=== PATIENT | male | born 1945 | race Caucasian/White ===

== ENCOUNTER 2019-08-01 09:47 | Emergency (ER) | payer MEDICARE, BC ==
[2019-08-01] MEDS ORDERED: Sodium Chloride 0.9% 10 ML Syringe FLUSH PRN (10:09)
[2019-08-01] MEDS ORDERED: Ondansetron 4 MG/2 ML SDV IVPUSH ONE (10:10)
[2019-08-01] MEDS ORDERED: Ketorolac 15 MG/ML SDV IVPUSH ONE (10:10)
[2019-08-01] MEDS ORDERED: Sodium Chloride 0.9% 1,000 ML IV SCH (10:15)
[2019-08-01 11:06] LABS: ANION GAP 11.6 mmol/L (10-20); CHLORIDE,CL 104 mmol/L (54-184); SODIUM,NA 141 mmol/L (69-191)
--- NOTE | 2019-08-01 11:12 | CT ---
[id number] CT/CT Abdomen Pelvis WO IV EXAM: CT Abdomen Pelvis WO IV CLINICAL DATA: LEFT FLANK PAIN. COMPARISON STUDY: None. FINDINGS: Mild left-sided hydroureteronephrosis to the level of the urinary bladder with periureteral and perinephric reactive change. No obstructing stone identified on this examination. Findings are nonspecific and possibly sequela of a recently passed stone. There are punctate 1-2 mm nonobstructing bilateral renal calculi. Right ureter is normal in caliber. Prostate gland is radiographically unremarkable appearance. No evidence of colitis or diverticulitis. No small bowel obstruction or inflammation. Liver, gallbladder, spleen, pancreas, and adrenal glands are unremarkable. No lymphadenopathy in the abdomen or pelvis. IMPRESSION: Mild left-sided hydroureteronephrosis to the level of the urinary bladder without obstructing stone. Findings are nonspecific and possibly sequela of a recently passed stone. If symptoms persist, consider CT urogram protocol to evaluate for any other underlying pathology. Bilateral nonobstructing renal calculi right greater than left. Other findings are described above. Seth Shin MD 08/01/19 1111 Thank you for allowing us to participate in the care of your patient.
--- NOTE | 2019-08-01 11:24 | EDM.PDOC ---
ED HPI GENERAL MEDICAL PROBLEM - General Chief Complaint: Flank Pain Stated Complaint: flank pain Time Seen by Provider: 08/01/19 10:15 Source of Information: Reports: Patient History Limitations: Reports: No Limitations - History of Present Illness INITIAL COMMENTS - FREE TEXT/NARRATIVE: Patient comes into the emergency department with complaint of left flank pain. Patient states that it started suddenly 2 days ago and has progressively gotten worse. Patient states the worst pain has been this morning. It's been constant. He does have a history of kidney stones however was on the right side. He did have to have a lithotripsy due to the obstruction in the past. Patient states that he has been nauseated and has difficulty getting comfortable due to the pain. He states that it is worse when he is sitting down. It does feel better when he is up pacing the floor. He denies taking any medications for any relief prior to arrival. Patient denies any other complaints or concerns. Location: Reports: Back Quality: Reports: Burning, Sharp Severity: Severe Improves with: Reports: Movement Worsens with: Reports: Rest Associated Symptoms: Reports: Nausea/Vomiting - Related Data Allergies Allergy/AdvReac Type Severity Reaction Status Date / Time codeine AdvReac Severe Headache Verified 10/17/16 13:08 Home Meds: Home Meds Ketorolac [Toradol] 10 mg PO Q6H PRN #15 tab 08/01/19 [Rx] Tamsulosin HCl [Flomax] 0.4 mg PO DAILY #14 cap.er.24h 08/01/19 [Rx] ED ROS GENERAL - Review of Systems Review Of Systems: ROS reveals no pertinent complaints other than HPI. Constitutional: Reports: No Symptoms HEENT: Reports: No Symptoms Respiratory: Reports: No Symptoms Cardiovascular: Reports: No Symptoms Endocrine: Reports: No Symptoms : Reports: Flank Pain. Denies: Dysuria, Frequency, Hematuria, Incontinence, Irregular Menses, Pain, Urgency Musculoskeletal: Reports: No Symptoms Skin: Reports: No Symptoms Neurological: Reports: No Symptoms ED EXAM, GENERAL - Physical Exam Exam: See Below Exam Limited By: No Limitations General Appearance: Alert, WD/WN, No Apparent Distress Head: Atraumatic, Normocephalic Neck: Normal Inspection, Supple, Non-Tender, Full Range of Motion Respiratory/Chest: No Respiratory Distress, Lungs Clear, Normal Breath Sounds, No Accessory Muscle Use, Chest Non-Tender Cardiovascular: Normal Peripheral Pulses, Regular Rate, Rhythm, No Edema GI/Abdominal: Normal Bowel Sounds, Soft, Non-Tender, No Distention, No Abnormal Bruit (Male) Exam: No Hernia Back Exam: Normal Inspection, Full Range of Motion Extremities: Normal Inspection, Normal Range of Motion, Non-Tender, No Pedal Edema, Normal Capillary Refill Neurological: Alert, Oriented Psychiatric: Normal Affect, Normal Mood Skin Exam: Warm, Dry, Intact, Normal Color, No Rash Course - Orders/Labs/Meds Orders: Active Orders 24 hr Category Date Time Status Sodium Chloride 0.9% [Normal Saline] 1,000 ml Med 08/01/19 10:15 Active IV ASDIRECTED Sodium Chloride 0.9% [Saline Flush] Med 08/01/19 10:09 Active 10 ml FLUSH ASDIRECTED PRN Tamsulosin [Flomax] Med 08/01/19 11:30 Active 0.4 mg PO DAILY Peripheral IV Insertion Adult [OM.PC] Stat Oth 08/01/19 10:09 Ordered Medication Orders Sodium Chloride (Normal Saline) 1,000 mls @ 1,000 mls/hr IV ASDIRECTED [facility] Last Admin: 08/01/19 10:33 Dose: 1,000 mls/hr Sodium Chloride (Saline Flush) 10 ml FLUSH ASDIRECTED PRN PRN Reason: Keep Vein Open Tamsulosin HCl (Flomax) 0.4 mg PO DAILY [facility] Last Admin: 08/01/19 11:27 Dose: 0.4 mg Labs: Laboratory Tests 08/01/19 08/01/19 08/01/19 Range/Units 10:35 10:35 10:40 WBC 9.7 (4.0-10.0) x10^3/uL RBC 4.74 (4.5-6.0) x10^6/uL Hgb 15.0 (14.0-18.0) g/dL Hct 44.7 (40.0-52.0) % MCV 94.3 H (78.0-93.0) fL MCH 31.6 (26.0-32.0) pg MCHC 33.6 (32.0-36.0) g/dL RDW Coeff of Kyle 12.9 (10.0-15.0) % Plt Count 200 (130-400) x10^3/uL Neut % (Auto) 89.4 H (50.0-80.0) % Lymph % (Auto) 6.2 L (25.0-50.0) % [place] % (Auto) 3.9 (2.0-11.0) % Eos % (Auto) 0.3 (0.0-4.0) % Baso % (Auto) 0.2 (0.2-1.2) % Sodium 141 (69-191) mmol/L Potassium 4.6 (1.5-9.9) mmol/L Chloride 104 (54-184) mmol/L Carbon Dioxide 30 (21-32) mmol/L Anion Gap 11.6 (10-20) mmol/L BUN 18 (7-18) mg/dL Creatinine 1.4 H (0.70-1.30) mg/dL Est Cr Clr Drug Dosing TNP Estimated GFR (MDRD) 50 Glucose 179 H (74-106) mg/dL Calcium 9.1 (8.5-10.1) mg/dL Corrected Calcium 9.42 (8.5-10.1) mg/dL Total Bilirubin 0.5 (0.2-1.0) mg/dL AST 30 (15-37) U/L ALT 27 (16-63) U/L Alkaline Phosphatase 65 (46-116) U/L Total Protein 7.6 (6.4-8.2) g/dL Albumin 3.6 (3.4-5.0) g/dL Globulin 4.0 Albumin/Globulin Ratio 0.90 Urine Color Yellow (YELLOW) Urine Appearance Slightly cloudy H (CLEAR) Urine pH 6.0 (5.0-8.0) Ur Specific [place] 1.020 Urine Protein Negative (NEGATIVE) mg/dL Urine Glucose (UA) Negative (NEGATIVE) mg/dL Urine Ketones Negative (NEGATIVE) mg/dL Urine Occult Blood Moderate H (NEGATIVE) Urine Nitrite Negative (NEGATIVE) Urine Bilirubin Negative (NEGATIVE) Urine Urobilinogen 0.2 (0.2) EU/dL Ur Leukocyte Esterase Negative (NEGATIVE) Urine RBC 10-20 H (NOT SEEN) /HPF Urine WBC 0-5 (NOT SEEN) /HPF Ur Squamous Epith Cells Rare (NEGATIVE) /HPF Urine Bacteria Rare (NEGATIVE) /HPF Urine Mucus Rare H (NEGATIVE) /LPF Meds: Medications Generic Name Dose Route Start Last Admin Trade Name Freq PRN Reason Stop Dose Admin Sodium Chloride 1,000 mls @ 1,000 mls/hr 08/01/19 10:15 08/01/19 10:33 Normal Saline IV 1,000 mls/hr ASDIRECTED RAMON Administration Sodium Chloride 10 ml 08/01/19 10:09 Saline Flush FLUSH ASDIRECTED PRN Keep Vein Open Tamsulosin HCl 0.4 mg 08/01/19 11:30 08/01/19 11:27 Flomax PO 0.4 mg DAILY RAMON Administration Discontinued Medications Generic Name Dose Route Start Last Admin Trade Name Freq PRN Reason Stop Dose Admin Ketorolac Tromethamine 15 mg 08/01/19 10:10 08/01/19 10:31 Toradol IVPUSH 08/01/19 10:11 15 mg ONETIME ONE Administration Ondansetron HCl 4 mg 08/01/19 10:10 08/01/19 10:33 Zofran IVPUSH 08/01/19 10:11 4 mg ONETIME ONE Administration Departure - Departure Time of Disposition: 12:00 Disposition: Home, Self-Care 01 Condition: Good Clinical Impression: Kidney stone - Discharge Information *PRESCRIPTION DRUG MONITORING PROGRAM REVIEWED*: Not Applicable *COPY OF PRESCRIPTION DRUG MONITORING REPORT IN PATIENT DOREEN: Not Applicable Prescriptions: Ketorolac [Toradol] 10 mg PO Q6H PRN #15 tab PRN Reason: Pain (Moderate 4-6) Tamsulosin HCl [Flomax] 0.4 mg PO DAILY #14 cap.er.24h Instructions: Low-Purine Eating Plan, Kidney Stones, [id number], Flank Pain, Adult, [id number] Referrals: Katiana Burkett, [Primary Care Provider] - Forms: ED Department Discharge Additional Instructions: 1. Increase your water intake 2. Take Toradol as needed for pain and discomfort 3. Take Flomax daily for the next 14 days 4. A strainer sent home please try to collect the stone if at all possible bring back in for analysis 5. Follow up as needed in the clinic 6. Activity and diet as tolerated 8. Call with any questions or concerns - My Orders Last 24 Hours: My Active Orders 08/01/19 10:09 Sodium Chloride 0.9% [Saline Flush] 10 ml FLUSH ASDIRECTED PRN Peripheral IV Insertion Adult [OM.PC] Stat 08/01/19 10:15 Sodium Chloride 0.9% [Normal Saline] 1,000 ml IV ASDIRECTED 08/01/19 11:30 Tamsulosin [Flomax] 0.4 mg PO DAILY - Assessment/Plan Last 24 Hours: My Active Orders 08/01/19 10:09 Sodium Chloride 0.9% [Saline Flush] 10 ml FLUSH ASDIRECTED PRN Peripheral IV Insertion Adult [OM.PC] Stat 08/01/19 10:15 Sodium Chloride 0.9% [Normal Saline] 1,000 ml IV ASDIRECTED 08/01/19 11:30 Tamsulosin [Flomax] 0.4 mg PO DAILY Assessment:: 1. Left flank pain 2. Left kidney stone Plan: 1. IV initiated and fluids given in the ER 2. Labs completed in the ER. Results reviewed with patient 3. CT scan of abdomen and pelvis completed in the ER. Results reviewed with patient 4. Toradol IV and Zofran given in the ER for pain and nausea. 5. Flomax given in the ER 6. Toradol and Flomax prescription sent home with the patient 7. Education provided the patient regarding straining, medication use, over-the- counter medication use, diet, activity, follow-up, and when to seek medical attention if symptoms worsen or progress 8. All questions and concerns addressed prior to discharge
[2019-08-01] MEDS ORDERED: Tamsulosin 0.4 MG Cap.ER PO SCH (11:30)
[2019-08-01 18:10] VITALS: BP 121/66; PULSE 47
== END 2019-08-01 11:55 | disposition home or self-care (01) ==
LOC: VM.ED 09:47
DX: N13.2 Hydronephrosis with renal and ureteral calculous obstruction (principal); Z87.442 Personal history of urinary calculi; Z88.5 Allergy status to narcotic agent
CPT/HCPCS: 36415; 74176; 80053; 81001; 85025; 96361; 96374; 96375; 99284; A9270; J1885; J2405; J7030

== ENCOUNTER 2023-05-21 12:05 | Emergency (ER) | payer MEDICARE, BC ==
[2023-05-21] MEDS ORDERED: Sodium Chloride 0.9% 10 ML Syringe FLUSH PRN (12:16)
[2023-05-21] MEDS ORDERED: fentaNYL 50 MCG/ML SDV IVPUSH ONE (12:21)
[2023-05-21 12:23] LABS: BASOPHILS PERCENT AUTO 0.2 % (0.2-1.2); EOSINOPHILS ABSOLUTE AUTO 0.2 x10^3/uL (0.0-0.5); EOSINOPHILS PERCENT AUTO 2.7 % (0.0-4.0); HEMATOCRIT 43.5 % (40.0-52.0); HEMOGLOBIN 15.2 g/dL (14.0-18.0); IMMATURE GRAN ABSOLUTE AUTO 0.07 x10^3/uL (0.00-0.07); LYMPHOCYTES ABSOLUTE AUTO 2.2 x10^3/uL (1.0-4.8); LYMPHOCYTES PERCENT AUTO 26.8 % (25.0-50.0); MEAN CORPUSCULAR HEMOGLOBIN 32.4 pg (26.0-32.0); MEAN CORPUSCULAR HGB CONC 34.9 g/dL (32.0-36.0); MEAN CORPUSCULAR VOLUME 92.8 fL (78.0-93.0); MONOCYTES ABSOLUTE AUTO 0.6 x10^3/uL (0.0-0.8); MONOCYTES PERCENT AUTO 7.3 % (2.0-11.0); NEUTROPHILS PERCENT AUTO 62.1 % (50.0-80.0); PLATELET COUNT,PLT 198 x10^3/uL (130-400); RED BLOOD CELL COUNT 4.69 x10^6/uL (4.5-6.0); WHITE BLOOD CELL COUNT,WBC 8.1 x10^3/uL (4.0-10.0)
[2023-05-21 12:36] LABS: INR 0.9 (2.0-3.5); PROTHROMBIN TIME 9.5 SEC (9.5-12.2); PTT,PARTIAL THROMBOPLSTIN TIME 21.1 SEC (23.6-33.6)
[2023-05-21] MEDS ORDERED: Iopamidol 612 MG/ML 100 ML Bottle IVPUSH ONE (12:37)
[2023-05-21 12:38] LABS: A/G RATIO 0.78; ALANINE AMINOTRANSFERASE,ALT 89 U/L (16-63); ALBUMIN 3.6 g/dL (3.4-5.0); ALKALINE PHOSPHATASE 60 U/L (46-116); ASPARTATE AMNIOTRANSFERASE,AST 112 U/L (15-37); BILIRUBIN TOTAL 0.7 mg/dL (0.2-1.0); BLOOD UREA NITROGEN,BUN 19 mg/dL (7-18); CALCIUM 9.5 mg/dL (8.5-10.1); CARBON DIOXIDE,CO2 31 mmol/L (21-32); CHLORIDE,CL 102 mmol/L (98-107); CREATININE 1.3 mg/dL (0.70-1.30); GLUCOSE RANDOM 156 mg/dL (70-99); POTASSIUM,K 3.7 mmol/L (3.5-5.1); PROTEIN TOTAL,TP 8.2 g/dL (6.4-8.2); SODIUM,NA 142 mmol/L (136-145)
[2023-05-21 12:41] LABS: ANION GAP 12.7 mmol/L (5-15); ESTIMATED GFR 56 mL/min (>=60)
[2023-05-21 12:43] LABS: LACTIC ACID 3.4 mmol/L (0.4-2.0)
[2023-05-21] MEDS ORDERED: Sodium Chloride 0.9% 1,000 ML IV ONE (12:49)
[2023-05-21] MEDS ORDERED: Ondansetron 4 MG/2 ML SDV IVPUSH ONE (12:50)
[2023-05-21] MEDS ORDERED: Lidocaine 1% 10 ML MDV INJECT ONE (13:14)
[2023-05-21] MEDS ORDERED: HYDROmorphone 0.5 MG/0.5 ML Syringe IVPUSH ONE (13:34)
[2023-05-21] MEDS ORDERED: Diphtheria,Pertussis(Acell),Tetanus Vaccine 0.5 ML Syringe IM ONE (13:34)
[2023-05-21] MEDS ORDERED: Naloxone 0.4 MG/ML SDV IVPUSH PRN (13:34)
[2023-05-21] MEDS ORDERED: Sodium Chloride 0.9% 1,000 ML IV SCH (14:15)
== END 2023-05-21 14:30 | disposition short-term general hospital (02) ==
LOC: VM.ED 12:05
DX: S22.41XA Multiple fractures of ribs, right side, initial encounter for closed fracture (principal); I25.10 Atherosclerotic heart disease of native coronary artery without angina pectoris; E78.00 Pure hypercholesterolemia, unspecified; I10 Essential (primary) hypertension; Z88.5 Allergy status to narcotic agent; Z79.82 Long term (current) use of aspirin; Z79.899 Other long term (current) drug therapy; Z87.891 Personal history of nicotine dependence; Z23 Encounter for immunization; W55.22XA Struck by cow, initial encounter
CPT/HCPCS: 12002; 12011; 36415; 70450; 71045; 71260; 72170; 80053; 83605; 85025; 85610; 85730; 90471; 90715; 93010; 96361; 96374; 96375; 99285; 99285-25; J1170; J2405; J3010; J3490; J7030; Q9967